=== PATIENT | female | born 1955 | race Two or more races ===

== ENCOUNTER 2025-03-11 11:43 | Inpatient (IN) | payer MEDICARE ==
[~2025-03-11] VITALS: Ht 167.6 cm; Wt 99.8 kg
[2025-03-11 11:45] VITALS: O2SAT 100
[2025-03-11] MEDS: SODIUM CHLORIDE 0.9% (SEPSIS BOLUS) IV ONE (15:57)
[2025-03-11 15:58] LABS: HEMATOCRIT. 37.9 % (36.0-48.0); HEMOGLOBIN. 12.6 g/dL (12.0-16.0); MEAN PLATELET VOLUME 8.7 fl (7.4-10.4); PLATELET 191 x1000/uL (130-400); RED BLOOD CELL COUNT 4.05 mill/uL (4.2-5.4); RED CELL DISTRIBUTION WIDTH 14.4 % (11.6-14.6)
[2025-03-11 16:08] LABS: INR 1.0
[2025-03-11 16:12] LABS: CREATININE 0.6 mg/dL (0.6-1.0); UREA NITROGEN BLOOD 9 mg/dL (9-23)
[2025-03-11] MEDS: VANCOMYCIN 1G PREMIX 200 ML IV ONE (16:12)
[2025-03-11 16:14] LABS: ASPARTATE AMINOTRANSFERASE 11 IU/L (<34); BILIRUBIN DIRECT 0.3 mg/dL (<=3.0); BILIRUBIN TOTAL 0.6 mg/dL (0.1-1.0); PROTEIN TOTAL 6.6 g/dL (6.0-8.3)
[2025-03-11 17:03] LABS: LYMPHOCYTES % MANUAL 10.0 % (20.0-60.0); MONOCYTES % MANUAL 1.0 % (2.0-8.0); NEUTROPHILS % MANUAL 89.0 % (45.0-75.0); PLATELET ESTIMATE NORMAL
[2025-03-11 18:15] LABS: CLARITY URINE CLOUDY (CLEAR); COLOR URINE YELLOW (YELLOW); GLUCOSE URINE NEGATIVE (NEGATIVE); KETONES URINE 3+ (NEGATIVE); LEUKOCYTE ESTERASE URINE 2+ (NEGATIVE); NITRITE URINE NEGATIVE (NEGATIVE); OCCULT BLOOD URINE 1+ (NEGATIVE); PH URINE 6.0 (4.5-8.0); PROTEIN URINE NEGATIVE (NEGATIVE); SPECIFIC GRAVITY URINE 1.019 (1.005-1.030); UROBILINOGEN URINE 1.0 E.U./dL (0.2-1.0)
[2025-03-11] MEDS: MORPHINE SULFATE 2 MG/ML INJ (NOT FOR IM USE) IV ONE (18:15)
[2025-03-11] MEDS ORDERED: GUAIFENESIN 200MG/10ML SUGAR FREE UDC PO PRN (18:15)
[2025-03-11] MEDS ORDERED: DOCUSATE SODIUM 100MG CAPSULE PO PRN (18:15)
[2025-03-11] MEDS ORDERED: MAGNESIUM/ALUMINUM HYDROXIDE/SIMETHICONE 30ML UDC PO PRN (18:15)
[2025-03-11] MEDS ORDERED: ONDANSETRON HCL 4MG/2ML INJ IV PRN (18:15)
[2025-03-11] MEDS ORDERED: IPRATROPIUM/ALBUTEROL 0.5-3(2.5)MG/3ML NEB HHN PRN (18:15)
[2025-03-11] MEDS ORDERED: CLONIDINE 0.1MG TABLET PO PRN (18:15)
[2025-03-11] MEDS ORDERED: ACETAMINOPHEN 325MG TABLET PO PRN (18:15)
[2025-03-11 18:49] LABS: BACTERIA URINE 4+; SQUAMOUS EPITHELIAL CELL URINE 1+ /lpf (RARE/1+)
[2025-03-11 18:50] LABS: WBC URINE 50-100 /hpf (0-2)
[2025-03-11 20:00] VITALS: BP 160/90; PULSE 92; RESP 18; TEMP 36.9; O2SAT 96
[2025-03-11] MEDS: ENOXAPARIN 40MG/0.4ML SYR SUBCUT SCH (20:00)
[2025-03-11 21:00] VITALS: BP 160/90; PULSE 92; RESP 18; TEMP 36.974
[2025-03-11] MEDS: PANTOPRAZOLE SODIUM 40 MG/VIAL IV SCH (22:26)
[2025-03-11] MEDS: BUSPIRONE HCL 5MG TABLET PO SCH (22:26)
[2025-03-11] MEDS: PAROXETINE HCL 10MG TABLET PO SCH (22:26)
[2025-03-11] MEDS: CEFTRIAXONE 1GM/50ML 50 ML IV SCH (22:26)
[2025-03-11] MEDS: IBUPROFEN 600MG TABLET PO PRN (22:27)
[2025-03-12] VITALS: BP 146/66; PULSE 71; RESP 16; TEMP 36.4; O2SAT 97
[2025-03-12] MEDS: SODIUM CHLORIDE 0.45% 1,000 ML IV ONE (00:32)
[2025-03-12 04:00] VITALS: BP 150/68; PULSE 80; RESP 17; TEMP 36.2; O2SAT 93
[2025-03-12] MEDS: VANCOMYCIN 1.25GM/250ML IV SCH (07:25)
[2025-03-12] MEDS: LEVOTHYROXINE SODIUM 100MCG TABLET PO SCH (07:25)
[2025-03-12 08:00] VITALS: BP 137/67; PULSE 71; RESP 18; TEMP 36.6; O2SAT 98
[2025-03-12 08:32] LABS: BASOPHILS % 0.6 % (0.0-2.0); EOSINOPHILS % 2.3 % (0.0-5.0); HEMATOCRIT. 33.9 % (36.0-48.0); HEMOGLOBIN. 11.2 g/dL (12.0-16.0); LYMPHOCYTES % 16.7 % (20.0-50.0); MEAN PLATELET VOLUME 8.8 fl (7.4-10.4); MONOCYTES % 7.4 % (2.0-8.0); NEUTROPHILS % 73.0 % (40.0-76.0); PLATELET 183 x1000/uL (130-400); RED BLOOD CELL COUNT 3.64 mill/uL (4.2-5.4); RED CELL DISTRIBUTION WIDTH 14.1 % (11.6-14.6)
[2025-03-12 08:55] LABS: CREATININE 0.5 mg/dL (0.6-1.0); T4 FREE 1.13 ng/dL (0.89-1.76); TRIGLYCERIDE 125 mg/dL (0-150); UREA NITROGEN BLOOD 8 mg/dL (9-23)
[2025-03-12 08:56] LABS: LDL CHOLESTEROL 71 mg/dL (5-100)
[2025-03-12 09:08] LABS: *AMPHETAMINES SCREEN URINE NEGATIVE (NEGATIVE)
[2025-03-12 09:10] LABS: *BARBITURATES SCREEN URINE NEGATIVE (NEGATIVE); *BENZODIAZEPINES SCREEN URINE NEGATIVE (NEGATIVE); *COCAINE SCREEN URINE NEGATIVE (NEGATIVE); CANNABINOID URINE SCREEN NEGATIVE (NEGATIVE); ECSTASY MDMA SCREEN URINE NEGATIVE (NEGATIVE); METHADONE URINE SCREEN NEGATIVE (NEGATIVE); OPIATES URINE SCREEN NEGATIVE (NEGATIVE); PHENCYCLIDINE URINE SCREEN NEGATIVE (NEGATIVE)
[2025-03-12] MEDS: AMLODIPINE 10MG TABLET PO SCH (10:16)
[2025-03-12] MEDS: ACETAMINOPHEN 325MG TABLET PO PRN (10:17)
[2025-03-12 12:00] VITALS: BP 135/73; PULSE 71; RESP 17; TEMP 36.6; O2SAT 96
[2025-03-12 16:00] VITALS: BP 122/62; PULSE 73; RESP 18; TEMP 36.3; O2SAT 99
[2025-03-12] MEDS: LORATADINE 10MG TABLET PO SCH (19:51)
[2025-03-12 20:00] VITALS: BP 147/58; PULSE 64; RESP 18; TEMP 36.5; O2SAT 95
[2025-03-13] VITALS: BP 113/73; PULSE 80; RESP 18; TEMP 36.4; O2SAT 98
[2025-03-13 04:00] VITALS: BP 146/72; PULSE 74; RESP 18; TEMP 36.4; O2SAT 96
[2025-03-13 07:33] LABS: BASOPHILS % 1.2 % (0.0-2.0); EOSINOPHILS % 4.8 % (0.0-5.0); HEMATOCRIT. 38.4 % (36.0-48.0); HEMOGLOBIN. 12.5 g/dL (12.0-16.0); LYMPHOCYTES % 26.2 % (20.0-50.0); MEAN PLATELET VOLUME 8.6 fl (7.4-10.4); MONOCYTES % 6.9 % (2.0-8.0); NEUTROPHILS % 60.9 % (40.0-76.0); PLATELET 189 x1000/uL (130-400); RED BLOOD CELL COUNT 4.10 mill/uL (4.2-5.4); RED CELL DISTRIBUTION WIDTH 14.1 % (11.6-14.6)
[2025-03-13 07:41] LABS: CREATININE 0.6 mg/dL (0.6-1.0); UREA NITROGEN BLOOD 6 mg/dL (9-23)
[2025-03-13 08:00] VITALS: BP 154/72; PULSE 75; RESP 18; TEMP 36.3; O2SAT 97
[2025-03-13] MEDS: VANCOMYCIN 1.25GM/250ML IV SCH (09:18)
[2025-03-13] MEDS ORDERED: AMLO10TA80 PO (11:11)
[2025-03-13] MEDS ORDERED: AMOX600S39 PO (11:11)
[2025-03-13] MEDS ORDERED: SULF1TAB48 PO (11:11)
[2025-03-13] MEDS ORDERED: BUSP5TAB3 PO (11:11)
[2025-03-13] MEDS ORDERED: PARO10TA74 PO (11:11)
[2025-03-13] MEDS ORDERED: LEVO100T9 PO (11:11)
[2025-03-13 12:00] VITALS: BP 124/73; PULSE 73; RESP 18; TEMP 36.7; O2SAT 96
[2025-03-13 12:28] VITALS: BP 124/73; PULSE 73; RESP 18; TEMP 98
[2025-03-13] MEDS ORDERED: AMOX1TAB15 MT (14:54)
[2025-03-13] MEDS ORDERED: SODIUM HYPOCHLORITE 0.125% 473ML SOLUTION TOP SCH (21:00)
[2025-03-13] MEDS ORDERED: VANCOMYCIN 750MG PMX (XELLIA) 150 ML IV SCH (21:00)
== END 2025-03-13 17:28 | disposition home or self-care (01) | DRG 603 ==
LOC: ER 11:43 → EDBEDREQ 16:10 → 5WST 19:59
PROVIDERS: ADMIT Internal Medicine; ATTEND Internal Medicine
DX: L02.413 Cutaneous abscess of right upper limb (principal); N39.0 Urinary tract infection, site not specified; L02.511 Cutaneous abscess of right hand; L03.113 Cellulitis of right upper limb; R31.29 Other microscopic hematuria; I10 Essential (primary) hypertension; F32.9 Major depressive disorder, single episode, unspecified; E03.9 Hypothyroidism, unspecified; G89.29 Other chronic pain; M54.9 Dorsalgia, unspecified; J45.909 Unspecified asthma, uncomplicated; Z98.84 Bariatric surgery status; Z79.899 Other long term (current) drug therapy; W57.XXXA Bitten or stung by nonvenomous insect and other nonvenomous arthropods, initial encounter
CPT/HCPCS: 36415; 71045; 73100; 80048; 80061; 80076; 80202; 80305; 81003; 83036; 83605; 84145; 84439; 84443; 85025; 87077; 87186; 93005; 96365; 96375; 99285; A4606; J0696; J1650; J2270; J2470; J3373; J7030